=== PATIENT | female | born 1965 ===

== ENCOUNTER → 2021-04-18 | Outpatient (RCR) | payer OTHER | LOC: WSPT | DX: M54.50 Low back pain, unspecified (principal) ==

== ENCOUNTER → 2021-05-16 | Outpatient (RCR) | payer OTHER | END | disposition home or self-care (01) | LOC: WSC → WSPT 04-27 14:00 → WSC 04-29 14:15 | DX: M51.36 Other intervertebral disc degeneration, lumbar region (principal) ==

== ENCOUNTER 2021-06-09 12:45 | Outpatient (RCR) | payer OTHER | END 2021-06-16 | disposition home or self-care (01) | LOC: WSC | DX: M51.36 Other intervertebral disc degeneration, lumbar region (principal); M54.31 Sciatica, right side ==

== ENCOUNTER → 2021-08-29 | Outpatient (CLI) | payer OTHER | LOC: MHCPAIN 12:27 | DX: M47.817 Spondylosis without myelopathy or radiculopathy, lumbosacral region (principal); M53.3 Sacrococcygeal disorders, not elsewhere classified; M54.16 Radiculopathy, lumbar region | CPT/HCPCS: G0463 ==

== ENCOUNTER → 2021-09-05 | Outpatient (CLI) | payer OTHER | LOC: MHCPAIN 12:42 | DX: M47.816 Spondylosis without myelopathy or radiculopathy, lumbar region (principal); M53.3 Sacrococcygeal disorders, not elsewhere classified; M54.16 Radiculopathy, lumbar region | CPT/HCPCS: J1100; Q9967 ==

== ENCOUNTER → 2021-09-21 | Outpatient (CLI) | payer OTHER | LOC: MHCPAIN 14:38 | DX: M47.897 Other spondylosis, lumbosacral region (principal); M53.3 Sacrococcygeal disorders, not elsewhere classified; M54.50 Low back pain, unspecified; I10 Essential (primary) hypertension | CPT/HCPCS: G0463 ==

== ENCOUNTER → 2021-09-29 | Outpatient (CLI) | payer OTHER | LOC: MHCPAIN 10:53 | DX: M53.3 Sacrococcygeal disorders, not elsewhere classified (principal); M47.817 Spondylosis without myelopathy or radiculopathy, lumbosacral region | CPT/HCPCS: G0260; J1040; Q9967 ==

== ENCOUNTER → 2021-10-18 | Outpatient (CLI) | payer OTHER | LOC: MHCPAIN 09:18 | DX: M47.896 Other spondylosis, lumbar region (principal); M53.3 Sacrococcygeal disorders, not elsewhere classified; M54.50 Low back pain, unspecified | CPT/HCPCS: G0463 ==